=== PATIENT | male | born 1970 | race Caucasian/White ===

== ENCOUNTER 2018-05-10 13:39 | Emergency (ER) | payer OTHER, SELFPAY ==
[2018-05-10] VITALS (7 sets, daily range): BP systolic 120–146; BP diastolic 77–94; PULSE 80–90; RESP 12–16; TEMP 36.6; O2SAT 96–99; BMI 36.6
--- NOTE | 2018-05-10 13:49 | ED.CHESTPAIN ---
HPI - Chest Pain General Chief Complaint: Chest Pain Stated Complaint: HEART PROBLEMS Time Seen by Provider: 05/10/18 13:49 Source: patient Mode of arrival: ambulatory Limitations: no limitations History of Present Illness HPI narrative: patient is a 48-year-old male here for evaluation of chest pain. Patient states that yesterday he was not feeling very well but did not have any chest pain. He states that very early this morning he woke up shortly afterwards he had chest pain. Uncertain as the how long it lasts however the time of my evaluation he was symptom free. He did take an aspirin this morning. Patient has had a heart attack when he was 43. Does have a stent in place. Is currently on aspirin no other medications. Went to the [facility] walk-in clinic who sent him here for evaluation. Patient states that his symptoms this morning and character felt like his prior heart attack however were certainly not as severe as that time. Related Data Home Medications Medication Instructions Recorded Confirmed aspirin 325 mg PO DAILY 05/10/18 05/10/18 insulin aspart U-100 [Novolog 25 units SUB-Q TID 05/10/18 05/10/18 Flexpen U-100 Insulin] insulin degludec [Tresiba 70 units SUB-Q DAILY 05/10/18 05/10/18 FlexTouch U-100] irbesartan 150 mg PO DAILY 05/10/18 05/10/18 rosuvastatin [Crestor] 20 mg PO DAILY 05/10/18 05/10/18 Allergies Allergy/AdvReac Type Severity Reaction Status Date / Time amoxicillin Allergy Intermediate Hives Verified 05/10/18 13:49 Review of Systems Constitutional Denies fatigue, Denies fever(s) and Denies headache(s) ENT Ears, Nose, Mouth, and Throat: Denies vertigo and Denies headache(s) Cardiovascular Reports chest pain ( Earlier today but none at the time of my evaluation), Denies diaphoresis, Denies rapid heart rate, Denies pedal edema, Denies edema, Denies palpitations, Denies dyspnea and Denies dyspnea on exertion Respiratory Denies cough, Denies dyspnea and Denies dyspnea on exertion Gastrointestinal Gastrointestinal: Denies abdominal pain, Denies diarrhea, Denies nausea and Denies vomiting Genitourinary Denies dysuria and Denies flank pain Musculoskeletal Denies myalgias and Denies arthralgias Integumentary/Breasts Denies lesions, Denies rash and Denies wounds Neurologic Denies behavioral changes, Denies confusion, Denies vertigo and Denies headache(s) Psychiatric Denies behavioral changes and Denies confusion Endocrine Denies fatigue and Denies palpitations Hematologic/Lymphatic Denies easy bleeding and Denies easy bruising Allergic/Immunologic Denies urticaria PFSH Social History Smoking Status: Never smoker Exam Initial Vital Signs Initial Vital Signs: Vital Signs Temperature 97.8 F 05/10/18 13:47 Pulse Rate 87 05/10/18 13:47 Respiratory Rate 12 05/10/18 13:47 Blood Pressure 140/82 H 05/10/18 13:47 Const General: cooperative, healthy appearing, comfortable, well developed, well groomed and No acute distress Nutritional Appearance: average body habitus Orientation: alert, awake and oriented x3 HENMT Head: normal to inspection and normocephalic Ears: hearing grossly normal bilaterally Nose: external nose normal Chest Chest: normal inspection of the chest Resp Effort & Inspection: normal respiratory effort and able to speak in complete sentences Auscultation: clear to auscultation bilaterally Cardio Rate: regular rate Rhythm: regular rhythm Heart Sounds: no murmurs Pulses: radial pulses present GI Inspection: normal to inspection and non-distended Palpation: soft, No firm and No tender Back/Spine/Pelvis Back: No CVA tenderness Skin Lesions: no lesions Rashes: no rashes Wounds: no wounds Neuro General: alert, awake and oriented x3 Cognition: normal cognition Speech: speech normal Gait: normal gait Extrem General: normal to inspection, capillary refill normal and normal exam except as noted Psych Appearance: grossly normal Affect: normal affect Attitude: cooperative Scores HEART Score Heart Score history: Highly Suspicious Heart Score EKG: Non-Specific repolarization disturbance Heart Score Age: 45-64 years old Heart Score risk factors: > 3 risk factors or hx of atherosclerotic disease Heart Score troponin: 1-3 times normal limit Heart Score Total: 7 Course Orders Ordered: ED Orders 05/10/18 13:50 XR chest 1V Stat EKG-12 Lead Stat 05/10/18 13:55 Complete Blood Count AUTO DIFF Stat Comprehensive Metabolic Panel Stat Lipase Stat Partial Thromboplastin Time Stat Prothrombin Time INR Stat Troponin with CK Cardiac Panel Stat Discontinued Medications Aspirin (Aspirin Chew) 324 mg PO NOW ONE Stop: 05/10/18 13:51 Last Admin: 05/10/18 14:17 Dose: Not Given Heparin Sodium (Porcine) (Heparin) 6,200 unit 60 unit/kg (6200 unit) IV NOW ONE Stop: 05/10/18 15:27 Last Admin: 05/10/18 15:36 Dose: 6,200 unit Heparin Sodium/Dextrose (Heparin Drip) 25,000 unit in 500 mls @ 24.712 mls/hr IV CONT JANNA; Protocol Last Admin: 05/10/18 15:36 Dose: 12 units/kg/hr, 24.712 mls/hr Vital Signs - 8 hr 05/10/18 13:47 05/10/18 14:05 05/10/18 14:36 Temperature 97.8 F Pulse Rate 87 80 80 Respiratory Rate 12 12 12 Blood Pressure 140/82 H Blood Pressure [Right Arm] 138/77 H 120/80 Pulse Oximetry 99 99 05/10/18 14:57 05/10/18 16:03 Temperature Pulse Rate 83 83 Respiratory Rate 15 12 Blood Pressure Blood Pressure [Right Arm] 120/80 143/94 H Pulse Oximetry 96 99 MDM - Chest Pain Medical Records Data Attestation: I reviewed the patient's medical records. Lab Data Attestation: I reviewed the patient's lab results. Result diagrams: 05/10/18 13:55 05/10/18 13:55 Lab Results 05/10/18 05/10/18 05/10/18 Range/Units 13:55 13:55 13:55 WBC 6.2 (4.5-11.0) X10^3/uL RBC 4.47 L (4.5-5.9) X10^6/uL Hgb 13.7 (13.5-17.5) g/dL Hct 39.5 L (41-53) % MCV 88.3 (80-100) fL MCH 30.7 (26-34) PG MCHC 34.7 (30-36) % RDW 13.3 (11.6-14.8) % Plt Count 294 (150-400) X10^3/uL Neut % (Auto) 60.1 (50-75) % Lymph % (Auto) 28.9 (25-40) % Mason % (Auto) 7.5 (3-14) % Eos % (Auto) 2.7 (2-4) % Baso % (Auto) 0.8 (0-2) % Neut # (Auto) 3700 (5692-7282) /uL PT 10.5 (10.1-12.7) SECONDS INR 1.0 (0.9-1.3) APTT 29 (26.4-36.2) SECONDS Sodium 138 (137-145) mmol/L Potassium 3.8 (3.4-5.1) mmol/L Chloride 99 (98-107) mmol/L Carbon Dioxide 29 (22-32) mmol/L BUN 13 (9-20) mg/dL Creatinine 0.80 (0.66-1.25) mg/dL Estimated GFR > 60.0 (>60) mL/min BUN/Creatinine Ratio 16.3 (6-22) Glucose 163 H (70-100) mg/dL Calcium 9.4 (8.4-10.2) mg/dL Total Bilirubin 1.2 (0.2-1.3) mg/dL AST 27 (17-59) IU/L ALT 34 (21-72) IU/L Alkaline Phosphatase 73 (38-126) U/L Total Creatine Kinase 117 (55-170) U/L CK-MB (CK-2) 3.22 H (<2.37) ng/mL CK-MB (CK-2) Rel Index 2.8 (1.5-5.0) % Troponin I 0.183 H* (0.01-0.034) ng/mL Total Protein 7.6 (6.3-8.2) g/dL Albumin 4.3 (3.5-5.0) g/dL Globulin 3.3 (1.7-4.1) g/dL Albumin/Globulin Ratio 1.3 (1.0-2.8) Lipase 44 (23-300) U/L Imaging Data Chest x-ray: Radiologist's impression: ROCEDURE: XR CHEST 1V INDICATIONS: chest pain TECHNIQUE: One view of the chest was acquired. COMPARISON: None. FINDINGS: Surgical changes and devices: None. Lungs and pleura: No pleural effusions or pneumothorax. Lungs are clear. Mediastinum: Mediastinal contours appear normal. Heart size is normal. Bones and chest wall: No suspicious bony lesions. Overlying soft tissues appear unremarkable. IMPRESSION: No acute cardiopulmonary disease. Dictated by: Cindy Conner M.D. on 05/10/2018 at 14:09 Approved by: Cindy Conner M.D. on 05/10/2018 at 14:10 ECG Data Attestation: I personally reviewed and interpreted this ECG as follows: Prior ECG tracings: available for review Interpretation: time 1343 hr sinus rhythm ventricular rate is 79 normal axis Normal intervals Normal QRS Nonspecific ST T wave changes unchanged from comparison EKG from walk-in clinic time 1227 hr MDM Narrative Medical decision making narrative: patient with known coronary artery disease. Nonspecific ST changes in the EKG. Troponin was elevated here in the ER. Patient was symptom free while here in the ER. He did take an aspirin prior to arrival here. He was started on heparin. Given his history and the elevated troponin in the nonspecific EKG changes patient does need inpatient admission. 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 He prefers to be transferred there. Patient is stable. He agrees to the transport. discussed the case with Dr. Ramirez with Cardiology at [facility] who accepts the patient in transport. She recommended stopping the heparin and placing the patient on Lovenox. I did discuss the change in medication with the patient. I did discuss that he was accepted at [facility]. Both he and his expressed understanding and agreement with plan. Discharge Plan Departure Patient Disposition: [facility] Clinical Impression: Non-ST elevated myocardial infarction, Diabetes mellitus Prescriptions: No Action aspirin 325 mg Tablet 325 mg PO DAILY RF: 0 irbesartan 150 mg Tablet 150 mg PO DAILY RF: 0 insulin aspart U-100 [Novolog Flexpen U-100 Insulin] 100 unit/mL Insulin Pen 25 units Sub-Q TID RF: 0 rosuvastatin [Crestor] 20 mg Tablet 20 mg PO DAILY RF: 0 insulin degludec [Tresiba FlexTouch U-100] 100 unit/mL (3 mL) Insulin Pen 70 units Sub-Q DAILY RF: 0
[2018-05-10 14:03] LABS: Add Manual Diff / Slide Review NO; Basophils Percent Auto 0.8 % (0-2); Eosinophils Percent Auto 2.7 % (2-4); Hematocrit 39.5 % (41-53); Hemoglobin 13.7 g/dL (13.5-17.5); Lymphocytes Percent Auto 28.9 % (25-40); Mean Corpuscular HGB Conc 34.7 % (30-36); Mean Corpuscular Hemoglobin 30.7 PG (26-34); Mean Corpuscular Volume 88.3 fL (80-100); Monocytes Percent Auto 7.5 % (3-14); Neutrophils Absolute Auto 3700 /uL (3000-5900); Neutrophils Percent Auto 60.1 % (50-75); Platelet Count 294 X10^3/uL (150-400); Red Blood Cell Count 4.47 X10^6/uL (4.5-5.9); Red Cell Distribution Width 13.3 % (11.6-14.8); White Blood Cell Count 6.2 X10^3/uL (4.5-11.0)
[2018-05-10 14:09] LABS: Prothrombin Time 10.5 SECONDS (10.1-12.7)
[2018-05-10 14:12] LABS: PTT Partial Thromboplastin Tim 29 SECONDS (26.4-36.2)
[2018-05-10 15:01] LABS: Alanine Aminotransferase 34 IU/L (21-72); Albumin 4.3 g/dL (3.5-5.0); Albumin Globulin Ratio 1.3 (1.0-2.8); Alkaline Phosphatase 73 U/L (38-126); Aspartate Aminotransferase 27 IU/L (17-59); BUN Creatinine Ratio 16.3 (6-22); Bilirubin Total 1.2 mg/dL (0.2-1.3); Blood Urea Nitrogen 13 mg/dL (9-20); Calcium 9.4 mg/dL (8.4-10.2); Carbon Dioxide 29 mmol/L (22-32); Chloride 99 mmol/L (98-107); Creatine Kinase 117 U/L (55-170); Estimated Glomerular Filt Rate > 60.0 mL/min (>60); Globulin 3.3 g/dL (1.7-4.1); Glucose 163 mg/dL (70-100); HEMOLYSIS < 15 (0-50); Lipase 44 U/L (23-300); Potassium 3.8 mmol/L (3.4-5.1); Sodium 138 mmol/L (137-145); Total Protein 7.6 g/dL (6.3-8.2)
[2018-05-10 15:16] LABS: CKMB % Relative Index 2.8 % (1.5-5.0); Creatine Kinase MB 3.22 ng/mL (<2.37)
[2018-05-10 15:17] LABS: Troponin I 0.183 ng/mL (0.01-0.034)
[2018-05-10] MEDS: HEPARIN 5,000 UNIT/ML VIAL 6200 UNIT IV (15:36)
[2018-05-10] MEDS: HEPARIN DRIP 25,000 UNIT/500 ML IV.SOLN 24.712 UNIT IV (15:36)
[2018-05-10] MEDS: ENOXAPARIN 100 MG/ML SYRINGE 105 MG SUBCUT (16:36)
== END 2018-05-10 18:08 | disposition short-term general hospital (02) ==
PROVIDERS: Emergency Provider Emergency Medicine
DX: I21.4 Non-ST elevation (NSTEMI) myocardial infarction (principal); E11.9 Type 2 diabetes mellitus without complications
CPT/HCPCS: 36591; 71045; 80053; 82550; 82553; 83690; 84484; 85025; 85610; 85730; 93005; 96365; 96372; 96376; 99284; 99285; J1644; J1650